=== PATIENT | female | born 1975 | race Caucasian/White ===

== ENCOUNTER 2020-07-27 15:35 | Inpatient (IN) | payer SELFPAY ==
[2020-07-27] MEDS ORDERED: Ondansetron ODT 4 MG TAB PO PRN (18:15)
[2020-07-27] MEDS ORDERED: Ondansetron PF 4 MG/2 ML Vial IVP PRN (18:15)
[2020-07-27] MEDS ORDERED: Calcium Carbonate 500 MG ChewTAB PO PRN (18:15)
[2020-07-27] MEDS ORDERED: Potassium Chloride 20 MEQ/100 ML PREMIX BAG IVPB SCH (18:15)
[2020-07-27] MEDS ORDERED: Senokot S 8.6-50 MG TAB PO PRN (18:15)
[2020-07-27] MEDS ORDERED: Dicyclomine 20 MG TAB PO PRN (18:17)
[2020-07-27] MEDS: Potassium Chloride 20 MEQ in Premix Bag 1 BAG IVPB SCH ×2 (18:42→22:46)
[2020-07-27] MEDS: Potassium Chloride 20 MEQ TAB PO SCH ×2 (18:42→22:45)
[2020-07-27] MEDS ORDERED: Magnesium Sulfate 4 GM in Sodium Chloride 0.9% 250 ML 250 ML IVPB SCH (19:00)
[2020-07-27] MEDS: cloNIDine 0.1 MG TAB PO PRN (21:02)
[2020-07-27] MEDS ORDERED: Dicyclomine 10 MG CAP PO PRN (23:08)
[2020-07-27] MEDS: diphenhydrAMINE 25 MG CAP PO PRN (23:43)
[2020-07-28] MEDS ORDERED: Electrolyte Replacement Protocol FS PRN (00:45)
[2020-07-28] MEDS ORDERED: Electrolyte Replacement Protocol 1 EACH FS SCH (00:45)
[2020-07-28] MEDS ORDERED: Nitroglycerin 0.4 MG TAB (25 Tab Bottle) SL PRN (01:01)
[2020-07-28] MEDS: NS 0.9% w/ 40 MEQ KCL 1,000 ML IV SCH ×2 (01:37→20:41)
[2020-07-28] MEDS ORDERED: traMADol HCl 50 MG TAB PO SCH (02:00)
[2020-07-28 03:41] LABS: #Lymphocytes 1.4 thou/uL (1.20-3.40); #Monocytes 0.3 thou/uL (0.11-0.59); #Neutrophils 2.5 thou/uL (1.40-6.50); %Basophils 0.3 % (0.0-1.0); %Eosinophils 0.5 % (0.0-10.0); %Lymphocytes 32.6 % (21.0-51.0); %Monocytes 7.1 % (0.0-10.0); %Neutrophils 59.6 % (42.0-75.0); Hemoglobin 11.1 g/dL (12.0-16.0); Mean Corpuscular HGB CONC 34.1 g/dL (32.0-36.0); Mean Corpuscular Hemoglobin 33.1 pg (27.0-31.0); Mean Corpuscular Volume 97.1 fL (78.0-98.0); Mean Platelet Volume 7.6 fL (7.4-10.4); Platelet Count 196 thou/uL (130-400); Red Blood Cell (RBC) Count 3.36 mill/uL (4.20-5.40); White Blood Cell (WBC) Count 4.2 thou/uL (4.8-10.8)
[2020-07-28 04:01] LABS: ALT (SGPT) 14 U/L (8-55); AST (SGOT) 39 U/L (5-34); Albumin 3.2 g/dL (3.5-5.0); Alkaline Phosphatase 106 U/L (40-110); Anion Gap 12 mmol/L (10-20); BUN (Urea Nitrogen) Less than 4 mg/dL (7.0-18.7); Bilirubin, Total 0.3 mg/dL (0.2-1.2); Calc. Creatinine Clearance 88 mL/min (70-130); Calcium 6.8 mg/dL (7.8-10.44); Carbon Dioxide 25 mmol/L (22-29); Chloride 106 mmol/L (98-107); Globulin 2.8 g/dL (2.4-3.5); Glucose 117 mg/dL (70-105); Magnesium 2.5 mg/dL (1.6-2.6); Potassium 3.3 mmol/L (3.5-5.1); Sodium 140 mmol/L (136-145)
[2020-07-28 04:03] LABS: CK (CPK) 455 U/L (29-168)
[2020-07-28 04:05] LABS: Phosphorus 1.3 mg/dL (2.3-4.7)
[2020-07-28 04:23] LABS: CKMB 0.6 ng/mL (0-6.6)
[2020-07-28] MEDS: PHOS-NAK 1 PKT PACK PO SCH ×4 (05:15→17:53)
[2020-07-28] MEDS ORDERED: Potassium Chloride 20 MEQ TAB PO SCH (06:45)
[2020-07-28] MEDS: Acetaminophen 325 MG TAB PO PRN (06:45)
[2020-07-28] MEDS: Aspirin 81 mg Enteric Coated Tablet PO SCH (08:15)
[2020-07-28] MEDS: Escitalopram Oxalate 10 mg Tablet PO SCH (08:15)
[2020-07-28] MEDS: Calcium Carbonate 600 MG + Vit D TAB PO SCH ×2 (08:15→17:53)
[2020-07-28] MEDS: Multivit, Therapeutic 1 TAB PO SCH (08:15)
[2020-07-28] MEDS ORDERED: FLU VACC QS2020-21(6MOS UP)/PF 60 MCG/0.5 ML SYRINGE IM ONE (09:00)
[2020-07-28 12:15] VITALS: BMI 20.3
[2020-07-28] MEDS: cloNIDine 0.1 MG TAB PO PRN (18:02)
[2020-07-28] MEDS ORDERED: hydrALAZINE 20 MG/ML VIAL SLOW IVP PRN (18:57)
[2020-07-28] MEDS ORDERED: Amlodipine 5 MG TAB PO SCH (20:45)
[2020-07-28] MEDS ORDERED: K-Phos Neutral 250 MG TAB PO SCH (21:00)
[2020-07-28] MEDS: Temazepam 15 MG CAP PO PRN (21:13)
[2020-07-29] MEDS: Acetaminophen 325 MG TAB PO PRN ×3 (00:55→17:20)
[2020-07-29] MEDS: cloNIDine 0.1 MG TAB PO PRN (00:55)
[2020-07-29 06:39] LABS: Anion Gap 11 mmol/L (10-20); BUN (Urea Nitrogen) Less than 4 mg/dL (7.0-18.7); CK (CPK) 329 U/L (29-168); Calc. Creatinine Clearance 98 mL/min (70-130); Calcium 7.4 mg/dL (7.8-10.44); Carbon Dioxide 27 mmol/L (22-29); Chloride 105 mmol/L (98-107); Glucose 104 mg/dL (70-105); Magnesium 1.4 mg/dL (1.6-2.6); Potassium 3.3 mmol/L (3.5-5.1); Sodium 140 mmol/L (136-145)
[2020-07-29] MEDS ORDERED: Magnesium Sulfate 4 GM in Sodium Chloride 0.9% 250 ML 250 ML IVPB SCH (07:00)
[2020-07-29] MEDS ORDERED: Potassium Chloride 20 MEQ TAB PO SCH (07:00)
[2020-07-29] MEDS ORDERED: K-Phos Neutral 250 MG TAB PO SCH (08:00)
[2020-07-29] MEDS: Calcium Carbonate 600 MG + Vit D TAB PO SCH ×2 (08:26→17:20)
[2020-07-29] MEDS: Escitalopram Oxalate 10 mg Tablet PO SCH (08:27)
[2020-07-29] MEDS: Multivit, Therapeutic 1 TAB PO SCH (08:27)
[2020-07-29] MEDS: Aspirin 81 mg Enteric Coated Tablet PO SCH (08:27)
[2020-07-29] MEDS ORDERED: Amlodipine 5 MG TAB PO SCH (09:00)
[2020-07-29] MEDS ORDERED: Nicotine 21 MG PATCH TOP SCH (11:00)
[2020-07-29] MEDS ORDERED: Magnesium Oxide 400 MG TAB PO SCH (11:00)
[2020-07-29] MEDS: Ibuprofen 200 MG TAB PO PRN ×2 (14:51→21:23)
[2020-07-29] MEDS: K-Phos Neutral 250 MG TAB PO SCH (17:21)
[2020-07-29] MEDS: NS 0.9% w/ 40 MEQ KCL 1,000 ML IV SCH (17:21)
[2020-07-29] MEDS: Magnesium Oxide 400 MG TAB PO SCH (21:14)
[2020-07-29] MEDS: Temazepam 15 MG CAP PO PRN (21:15)
[2020-07-30] MEDS: diphenhydrAMINE 25 MG CAP PO PRN (02:29)
[2020-07-30] MEDS: Acetaminophen 325 MG TAB PO PRN ×2 (02:29→09:12)
[2020-07-30 06:36] LABS: Anion Gap 16 mmol/L (10-20); BUN (Urea Nitrogen) 5 mg/dL (7.0-18.7); CK (CPK) 246 U/L (29-168); Calc. Creatinine Clearance 95 mL/min (70-130); Calcium 7.6 mg/dL (7.8-10.44); Carbon Dioxide 22 mmol/L (22-29); Chloride 106 mmol/L (98-107); Glucose 89 mg/dL (70-105); Magnesium 1.7 mg/dL (1.6-2.6); Phosphorus 2.6 mg/dL (2.3-4.7); Sodium 140 mmol/L (136-145)
[2020-07-30] MEDS ORDERED: Magnesium 2 GM/50 ML 2 GM in Premix Bag 1 BAG IVPB SCH (07:00)
[2020-07-30 07:24] VITALS: BP 146/94; TEMP 98.2
[2020-07-30] MEDS: Multivit, Therapeutic 1 TAB PO SCH (09:00)
[2020-07-30] MEDS: Escitalopram Oxalate 10 mg Tablet PO SCH (09:00)
[2020-07-30] MEDS ORDERED: Amlodipine 10 MG TAB PO SCH (09:00)
[2020-07-30] MEDS: Calcium Carbonate 600 MG + Vit D TAB PO SCH (09:01)
[2020-07-30] MEDS: Magnesium Oxide 400 MG TAB PO SCH (09:01)
[2020-07-30] MEDS: K-Phos Neutral 250 MG TAB PO SCH (09:01)
[2020-07-30] MEDS: Aspirin 81 mg Enteric Coated Tablet PO SCH (09:01)
[2020-08-03] MEDS ORDERED: Ergocalciferol 1.25 MG(50,000 UNITS) CAP PO SCH (09:00)
== END 2020-07-30 11:55 | disposition home or self-care (01) | DRG 558 ==
LOC: IMCU/EMU 17:11 → T4-A 07-28 17:00
PROVIDERS: ADMIT Internal Medicine; ATTEND Family Medicine
DX: M62.82 Rhabdomyolysis (principal); E87.6 Hypokalemia; Z23 Encounter for immunization; Z20.822 Contact with and (suspected) exposure to COVID-19; E83.42 Hypomagnesemia; K58.0 Irritable bowel syndrome with diarrhea; F41.9 Anxiety disorder, unspecified; F17.210 Nicotine dependence, cigarettes, uncomplicated; E87.8 Other disorders of electrolyte and fluid balance, not elsewhere classified; E78.5 Hyperlipidemia, unspecified; E55.9 Vitamin D deficiency, unspecified; I10 Essential (primary) hypertension; E83.39 Other disorders of phosphorus metabolism; E86.0 Dehydration; Z79.899 Other long term (current) drug therapy
CPT/HCPCS: 36415; 80048; 80053; 82306; 82550; 82553; 82607; 82746; 83735; 84100; 84484; 85025; 93306; J3475; J3480; J7050; Q0163